=== PATIENT | female | born 1985 | race Caucasian/White ===

== ENCOUNTER 2017-06-30 06:09 | Inpatient (IN) | payer BC ==
[~2017-06-30] VITALS: Ht 165.1 cm; Wt 70.5 kg
[2017-06-30] VITALS (18 sets, daily range): BP systolic 74–123; BP diastolic 43–64; PULSE 63–105; TEMP 97.9–98.4
[~2017-06-30 06:09] MED LIST: BIRTH CONTROL; NORCO 325 MG-51 TAB PO
[2017-06-30] MEDS ORDERED: CLARITIN 1010 MG/TAB (06:38)
[2017-06-30 07:00] LABS: BASO # 0.1 (0.0-0.2); BASO % 0.4 % (0.0-2.0); EOS # 0.1 (0.0-0.7); EOS % 0.9 % (0-4.0); GRAN # 8.9 (1.4-6.5); GRAN % 75.7 % (42.2-75.2); HEMOGLOBIN 12.2 g/dl (12.5-16.0); LYMPH # 1.9 (1.2-3.4); LYMPH % 16.2 % (20.0-51.0); MEAN CELL VOLUME 85 fl (80.0-100.0); MEAN CORPUSCULAR HEMOGLOBIN 29 pg (27.0-31.0); MEAN CORPUSCULAR HGB CONC 34 g/dl (33.0-37.0); MEAN PLATELET VOLUME 11.2 fl (7.4-10.4); MONO # 0.7 (0.1-0.6); MONO % 6.3 % (1.7-9.3); PLATELET COUNT 177 K/mm3 (130-400); RED BLOOD COUNT 4.24 M/mm3 (4.10-5.30); REDCELL DISTRIBUTION WIDTH-CV 12.8 % (11.5-14.5); WHITE BLOOD COUNT 11.8 K/mm3 (4.8-10.8)
[2017-06-30 07:15] LABS: HEMATOCRIT 36.1 % (37.0-47.0)
[2017-07-01 08:00] VITALS: BP 118/69; PULSE 73
[2017-07-01] MEDS ORDERED: IBU600 MG PO (08:37)
[2017-07-01] MEDS ORDERED: PERCOCET 325 MG1 TA2 PO (08:37)
[2017-07-01 16:15] VITALS: BP 109/63; PULSE 66; TEMP 98
[2017-07-01 21:30] VITALS: BP 117/60; PULSE 62; TEMP 98.1
[2017-07-02 08:28] VITALS: BP 119/65; PULSE 82
[2017-07-02 20:00] VITALS: BP 123/73; PULSE 74; TEMP 98.6
[2017-07-03 03:00] VITALS: BP 118/68; PULSE 78; TEMP 98.2
[2017-07-03 07:46] VITALS: BP 118/72; PULSE 83; TEMP 97.5
[2017-07-03 16:45] VITALS: BP 125/78; PULSE 80; TEMP 97.4
[2017-07-03 21:00] VITALS: BP 124/85; PULSE 73; TEMP 97.9
[2017-07-04 09:45] VITALS: BP 122/71; PULSE 67; TEMP 98.1
== END 2017-07-04 12:25 | disposition home or self-care (01) | DRG 766 ==
LOC: LDRO 06:09 → LDR 06:33 → OB 06:33
PROVIDERS: Obstetrics & Gynecology
PROC: 10D00Z1 Extraction of Products of Conception, Low, Open Approach (ICD-10-PCS; principal; 2017-06-30)
DX: O42.013 Preterm premature rupture of membranes, onset of labor within 24 hours of rupture, third trimester (principal); O32.1XX0 Maternal care for breech presentation, not applicable or unspecified; Z3A.35 35 weeks gestation of pregnancy; Z37.0 Single live birth
CPT/HCPCS: J0690; J1885; J2175; J2270; J2370; J2405; J2540; J2590; J7120